=== PATIENT | male | born 1950 | race Hispanic/Latino ===

== ENCOUNTER 2018-04-24 06:16 | Day surgery (SDC) | payer MEDICARE, MEDICAID ==
[2018-04-17 13:32] VITALS: BMI 25.7
[2018-04-24] MEDS ORDERED: Lactated Ringer's 1,000 ML IV ONE ×2 (07:30→09:40)
[2018-04-24] MEDS ORDERED: Succinylcholine 200 mg/10 ml Inj IV ONE (07:32)
[2018-04-24] MEDS ORDERED: Propofol 10 mg/ml Inj (20 ML) ONE (07:32)
[2018-04-24] MEDS ORDERED: Lidocaine 4% (Laryng-O-Jet) Kit MM ONE (07:32)
[2018-04-24] MEDS ORDERED: Rocuronium 10 mg/ml (5 ml) ONE (07:32)
[2018-04-24] MEDS ORDERED: Bupivacaine HCl 0.25% PF (30 ml) Inj ONE (07:41)
[2018-04-24] MEDS ORDERED: Midazolam 2 MG/2 ML VIAL ONE (08:23)
[2018-04-24] MEDS ORDERED: Morphine 1 mg/ml preservative-free Inj(Duramorph) ONE (08:23)
--- NOTE | 2018-04-24 08:24 | CP.SDSHP ---
Same Day Surgery H & P - History Proposed Procedure: Right Inguinal Hernia Repair Pre-Op Diagnosis: Right Inguinal hernia - Previous Medical/Surgical History Pulmonary: Bronchitis Comments: Ankylosing Spondilitis Previous Surgical History: Appendectomy, Open. Excision Left Hydrocele - Allergies Allergies: Allergies No Known Allergies Allergy (Verified 04/24/18 07:37) - Physical Exam Vital Signs: Vital Signs 04/24/18 07:20 Temperature 98.5 F Pulse Rate 67 Respiratory 18 Rate Blood Pressure 108/78 O2 Sat by Pulse 97 Oximetry Mental Status: Alert & Oriented x3 Neuro: WNL Heart: WNL Lungs: WNL GI: WNL Social History: Smoking, Alcohol (social) - {Optional Preform as Required} Abdomen: Other (midline scar) : Other (Right inguinal hernia) - Impression Impression: 67 yo M here for elective Right Inguinal hernia repair Pt. Evaluated Today:Candidate for Anesthesia & Procedure: Yes - Date & Time Date: 04/24/18 Time: 08:24 Short Stay Discharge - Short Stay Discharge Admitting Diagnosis/Reason for Visit: K40.3 Disposition: HOME/ ROUTINE Referrals: Garth Macario MD [Primary Care Provider] - Ruben Galvan MD [Medical Doctor] - Follow-up: Make an appointment to see Dr. Galvan in office in 1 week. Additional Instructions (Diet, Activity): No Heavy Lifting >10lbs for 6 weeks. Make an appointment to see Dr. Galvan in office in 1 week. You may resume regular diet and light activities such as walking. You may shower, no bathing/soaking or swimming. Keep an ice pack to the surgical site for 24hours. Continue home pain medications for pain as needed, you may take 600mg ibuprofen for additional pain control if needed. See your pain management doctor should you need any further pain control.
[2018-04-24] MEDS ORDERED: ePHEDrine 50 mg/ml Inj ONE (08:28)
[2018-04-24] MEDS ORDERED: ceFAZolin IV 1 gm in Dextrose 1 GM/50 ML BAG IVPB ONE (08:54)
[2018-04-24] MEDS ORDERED: Dexamethasone 4 mg/1 ml ONE (09:06)
[2018-04-24] MEDS ORDERED: Neostigmine 1:1000 (1 mg/ml) Inj ONE (09:24)
[2018-04-24] MEDS ORDERED: Lactated Ringer's 1,000 ML IV SCH (10:00)
--- NOTE | 2018-04-24 10:07 | PCM.SURG1 ---
Surgeon's Initial Post Op Note - Surgeon's Notes Surgeon: Dr. Galvan Boom Tender: Dr. Michael PGY4 Type of Anesthesia: General Endo Anesthesia Administered By: Alisha Pre-Operative Diagnosis: Right Inguinal Hernia Operative Findings: Right Inguinal hernia, Direct type Post-Operative Diagnosis: same Operation Performed: Right Inguinal hernia repair, with mesh Specimen/Specimens Removed: pro-loop mesh patch inserted Estimated Blood Loss: EBL {In ML}: 5 Blood Products Given: N/A Drains Used: No Drains Post-Op Condition: Good Date of Surgery/Procedure: 04/24/18 Time of Surgery/Procedure: 10:07
[2018-04-24 13:02] VITALS: BP 148/74; PULSE 83; RESP 18; TEMP 98; O2SAT 96
--- NOTE | 2018-04-28 09:27 | OP ---
PROCEDURE DATE: 04/24/2018 PREOPERATIVE DIAGNOSIS: Right inguinal hernia. POSTOPERATIVE DIAGNOSIS: Right inguinal hernia. PROCEDURE: Right inguinal hernia repair with mesh. SURGEON: Ruben Galvan MD SUPERINTENDENT [employer]ING MANAGING: Allyson Michael DO INDICATIONS: This is a 67-year-old male who developed symptomatic right inguinal hernia. He was seen in the office and elected for right inguinal hernia repair with mesh. OPERATIVE NOTE: The patient was brought to the operating room. Surgical safety checklist was performed. Preoperatively, 2 gm of Ancef were administered. The patient was placed in the supine position. General anesthesia was induced. The right groin was prepped and draped in sterile fashion. A 15-blade scalpel was used to make an oblique skin incision between the ASIS and the pubic tubercle in line with a natural skin crease. The dissection was carried down through Arsenio's and Camper's fascia using electrocautery The external oblique aponeurosis was visualized and then opened in the direction of its fibers through the external ring using electrocautery. The inguinal floor was exposed by creating superior and inferior flaps of the external oblique. The spermatic cord was identified and mobilized at the pubic tubercle and isolated using a [place] drain. This was done by dissecting the cremasteric fibers from the cord. The anteromedial aspect of the cord was examined, and no hernia sac was identified. The floor of the inguinal canal was then assessed and found to be severely weakened and a direct hernia was identified. A polypropylene mesh was cut to size in an oval shape with a longitudinal lateral opening. Starting at the pubic tubercle, the mesh was secured with continuous 2 -0 Prolene sutures to the inguinal ligament inferiorly and to the conjoint tendon superiorly. The ends of the patch were draped around the cord structures at the level of the internal ring and secured with suture. The [place] drain was removed, and the cord was returned to anatomic position located above the mesh. Hemostasis was achieved using electrocautery. The external oblique aponeurosis was then reapproximated using a continuous 3-0 Vicryl suture. Arsenio's fascia was closed with several interrupted 3-0 Vicryl sutures. Finally, the skin was closed using a 4-0 subcuticular continuous monofilament suture. The operative field was cleaned and dried. Dermabond was applied over the incision. Local anesthetic was injected into the skin. At the end of the procedure, the testes were gently pulled down into anatomic position in the scrotum. The patient tolerated the procedure well with no complications. Estimated blood loss was 5 mL. All instruments and sponge counts were correct. A surgical debriefing was performed. The patient was extubated and transferred to the PACU in stable condition. Allyson Michael DO Ruben Galvan MD [id number]
== END 2018-04-24 14:25 | disposition home or self-care (01) ==
LOC: H.OPSURG 06:16
PROVIDERS: ATTEND Surgery
DX: K40.90 Unilateral inguinal hernia, without obstruction or gangrene, not specified as recurrent (principal)
CPT/HCPCS: 49650; C1781; J0330; J0690; J1100; J1885; J2001; J2250; J2270; J2405; J2704; J2710; J3010; J7030; J7120